=== PATIENT | female | born 1970 | race Native Hawaiian/Other Pacific Islander ===

== ENCOUNTER 2022-03-19 14:12 | Outpatient (CLI) | payer OTHER | END 2022-03-19 20:16 | disposition home or self-care (01) | LOC: MRI 14:12 | PROVIDERS: ATTEND Internal Medicine | DX: M54.2 Cervicalgia (principal); Z85.41 Personal history of malignant neoplasm of cervix uteri; N95.8 Other specified menopausal and perimenopausal disorders; M25.511 Pain in right shoulder; R63.5 Abnormal weight gain; Z08 Encounter for follow-up examination after completed treatment for malignant neoplasm ==

== ENCOUNTER 2023-03-04 09:27 | Outpatient (CLI) | payer OTHER | END 2023-03-04 20:09 | disposition home or self-care (01) | LOC: US 09:27 | PROVIDERS: ATTEND Internal Medicine | DX: R94.5 Abnormal results of liver function studies (principal) ==